=== PATIENT | male | born 1960 | race Caucasian/White ===

== ENCOUNTER 2017-08-31 02:26 | Inpatient (IN) | payer MEDICARE, MEDICAID ==
[~2017-08-31] VITALS: Ht 180.3 cm; Wt 79.3 kg
[~2017-08-31 02:26] MED LIST: CIPR500T87 PO
[2017-08-31 03:40] LABS: BASOPHILS # (AUTO) 0.04 x10^3/uL (0-0.1); BASOPHILS % (AUTO) 0 % (0-1); EOSINOPHILS # (AUTO) 0.14 x10^3/uL (0-0.4); EOSINOPHILS % (AUTO) 1 % (1-7); LYMPHOCYTES # (AUTO) 1.99 x10^3/uL (1-3.4); LYMPHOCYTES % (AUTO) 15 % (22-44); MD NO; MEAN CORPUSCULAR HEMOGLOBIN 31.7 pg (27.5-34.5); MEAN CORPUSCULAR HGB CONC 34.1 g/dL (33.2-36.2); MEAN CORPUSCULAR VOLUME 93.1 fL (81-97); MEAN PLATELET VOLUME 7.6 fL (7.4-10.4); MONOCYTES # (AUTO) 0.66 x10^3/uL (0.2-0.8); MONOCYTES % (AUTO) 5 % (2-9); NEUTROPHILS % (AUTO) 79 % (42-75); PLATELET COUNT 491 x10^3/uL (130-400); RED CELL DISTRIBUTION WIDTH 12.7 % (9.4-14.8)
[2017-08-31 03:46] LABS: ALBUMIN 3.1 g/dL (3.4-5.0); ANION GAP 9 mmol/L (5-15); CALCIUM 8.8 mg/dL (8.5-10.1); CHLORIDE 104 mmol/L (98-107); CREATININE 0.99 mg/dL (0.7-1.3)
[2017-08-31 04:55] LABS: HCT (SEDRATE) 42.8 % (39.2-51.8)
[2017-08-31] MEDS ORDERED: MORPHINE SULFATE 4 MG/ML, 1ML IVPush PRN ×2 (06:00→07:00)
[2017-08-31] MEDS ORDERED: ONDANSETRON 2MG/ML, 2ML IVPush ONE (06:00)
[2017-08-31] MEDS ORDERED: ONDANSETRON 2MG/ML, 2ML ONE (06:19)
[2017-08-31] MEDS ORDERED: MORPHINE SULFATE 4 MG/ML, 1ML ONE (06:19)
[2017-08-31] MEDS ORDERED: CLINDAMYCIN PMX 600MG/50ML 50 ML ONE (06:47)
[2017-08-31] MEDS ORDERED: ONDANSETRON 2MG/ML, 2ML IVPush PRN ×2 (07:00→08:00)
[2017-08-31] MEDS ORDERED: CLINDAMYCIN PMX 600MG/50ML 50 ML IV ONE (07:00)
[2017-08-31] MEDS ORDERED: LABETALOL 5MG/ML, 20ML IVPush PRN (08:00)
[2017-08-31] MEDS ORDERED: VANCOMYCIN PER PHARMACY MC PRN (08:00)
[2017-08-31] MEDS ORDERED: BISACODYL 10 MG SUPP PR PRN (08:00)
[2017-08-31] MEDS ORDERED: VANCOMYCIN PMX 1GM/200ML 200 ML IV ONE (08:00)
[2017-08-31] MEDS ORDERED: POLYETHYLENE GLYCOL 17 GM PACKET PO PRN (08:00)
[2017-08-31] MEDS ORDERED: hydrALAzine 20 MG/ML, 1ML IVPush PRN (08:00)
[2017-08-31] MEDS ORDERED: ONDANSETRON ODT 4 MG PO PRN (08:00)
[2017-08-31 08:01] VITALS: BP 136/97
[2017-08-31] MEDS: OXYcodone IR 5MG TABLET PO PRN ×3 (08:14→20:31)
[2017-08-31] MEDS: LACTULOSE 10 GM/15 ML UDC PO SCH ×2 (08:16→20:31)
[2017-08-31] MEDS: SODIUM CHLORIDE 0.9% 1,000 ML IV SCH ×2 (08:18→19:26)
[2017-08-31 08:29] LABS: THYROID STIMULATING HORMONE 1.19 mIU/L (0.358-3.740)
[2017-08-31] MEDS ORDERED: PHARMACOKINETIC MONITORING MC PRN (08:30)
[2017-08-31] MEDS: PIPERACILLIN/TAZO/PMX 3.375GM 50 ML IV SCH ×2 (09:11→16:38)
[2017-08-31] MEDS: VANCOMYCIN 1,700 MG in SODIUM CHLORIDE 0.9% 250 ML IV SCH (10:40)
[2017-08-31] MEDS: NICOTINE 14MG/24 HR PATCH.TD24 TD SCH (11:37)
[2017-08-31 14:44] VITALS: BP 116/81
[2017-08-31] MEDS ORDERED: HEPARIN 5,000 UNITS/ML, 1ML ONE (17:13)
[2017-08-31] MEDS: HEPARIN 5,000 UNITS/ML, 1ML SQ SCH (17:17)
[2017-08-31 19:34] VITALS: BP 134/74
[2017-08-31] MEDS: MORPHINE SULFATE 4 MG/ML, 1ML IVPush PRN (20:49)
[2017-09-01 00:50] VITALS: BP 133/83
[2017-09-01] MEDS: PIPERACILLIN/TAZO/PMX 3.375GM 50 ML IV SCH ×3 (00:58→17:08)
[2017-09-01] MEDS: OXYcodone IR 5MG TABLET PO PRN ×2 (00:58→06:30)
[2017-09-01] MEDS: HEPARIN 5,000 UNITS/ML, 1ML SQ SCH ×3 (00:58→17:08)
[2017-09-01] MEDS: MORPHINE SULFATE 4 MG/ML, 1ML IVPush PRN ×3 (01:42→21:30)
[2017-09-01] MEDS: SODIUM CHLORIDE 0.9% 1,000 ML IV SCH ×2 (02:16→03:49)
[2017-09-01] MEDS: VANCOMYCIN 1,700 MG in SODIUM CHLORIDE 0.9% 250 ML IV SCH ×2 (03:45→22:11)
[2017-09-01 05:39] LABS: BASOPHILS # (AUTO) 0.05 x10^3/uL (0-0.1); BASOPHILS % (AUTO) 1 % (0-1); EOSINOPHILS # (AUTO) 0.37 x10^3/uL (0-0.4); EOSINOPHILS % (AUTO) 4 % (1-7); LYMPHOCYTES # (AUTO) 2.51 x10^3/uL (1-3.4); LYMPHOCYTES % (AUTO) 25 % (22-44); MD NO; MEAN CORPUSCULAR HEMOGLOBIN 31.6 pg (27.5-34.5); MEAN CORPUSCULAR HGB CONC 33.6 g/dL (33.2-36.2); MEAN PLATELET VOLUME 7.1 fL (7.4-10.4); MONOCYTES # (AUTO) 0.91 x10^3/uL (0.2-0.8); MONOCYTES % (AUTO) 9 % (2-9); NEUTROPHILS % (AUTO) 63 % (42-75); PLATELET COUNT 460 x10^3/uL (130-400); RED BLOOD COUNT 4.25 x10^6/uL (4.38-5.82); RED CELL DISTRIBUTION WIDTH 12.7 % (9.4-14.8)
[2017-09-01 05:53] LABS: CHLORIDE 105 mmol/L (98-107)
[2017-09-01 06:18] LABS: ALANINE AMINOTRANSFERASE 24 U/L (12-78); ALBUMIN 2.5 g/dL (3.4-5.0); ALKALINE PHOSPHATASE 94 U/L (45-117); ANION GAP 8 mmol/L (5-15); BILIRUBIN,TOTAL 0.3 mg/dL (0.2-1.0); CHOL/HDL RATIO 4.2; CHOLESTEROL, TOTAL 135 mg/dL (140-239); CREATININE 0.98 mg/dL (0.7-1.3); HDL CHOL % 24 % (26-37); HDL CHOLESTEROL (DIRECT) 32 mg/dL (40-60); LDL CHOLESTEROL,CALCULATED 81 mg/dL (54-169); LDL/HDL RATIO 2.5 (0.5-3.0); TOTAL PROTEIN 6.6 g/dL (6.4-8.2); TRIGLYCERIDES 112 mg/dL (50-200); VLDL CHOLESTEROL 22 mg/dL (0-25)
[2017-09-01] MEDS: LACTULOSE 10 GM/15 ML UDC PO SCH ×2 (08:41→20:00)
[2017-09-01 08:44] VITALS: BP 136/84
[2017-09-01] MEDS: NICOTINE 14MG/24 HR PATCH.TD24 TD SCH (10:25)
[2017-09-01] MEDS: ACETAMINOPHEN 325 MG TABLET PO PRN (14:35)
[2017-09-01 14:58] VITALS: BP 138/89
[2017-09-01 19:31] VITALS: BP 141/78
[2017-09-01] MEDS: TEMAZEPAM 15 MG CAPSULE PO PRN (19:55)
[2017-09-02] MEDS: ACETAMINOPHEN 325 MG TABLET PO PRN ×3 (00:12→13:44)
[2017-09-02 00:15] VITALS: BP 155/96
[2017-09-02] MEDS: MORPHINE SULFATE 4 MG/ML, 1ML IVPush PRN (00:28)
[2017-09-02] MEDS: PIPERACILLIN/TAZO/PMX 3.375GM 50 ML IV SCH ×3 (01:28→18:01)
[2017-09-02] MEDS: HEPARIN 5,000 UNITS/ML, 1ML SQ SCH ×3 (01:32→18:02)
[2017-09-02 07:22] VITALS: BP 138/95
[2017-09-02] MEDS: LACTULOSE 10 GM/15 ML UDC PO SCH ×2 (08:31→20:00)
[2017-09-02] MEDS: NICOTINE 14MG/24 HR PATCH.TD24 TD SCH (10:36)
[2017-09-02 14:50] VITALS: BP 141/95
[2017-09-02] MEDS: VANCOMYCIN 1,700 MG in SODIUM CHLORIDE 0.9% 250 ML IV SCH (16:12)
[2017-09-02 19:24] VITALS: BP 151/99
[2017-09-02] MEDS: OXYcodone IR 5MG TABLET PO PRN (20:01)
[2017-09-02] MEDS: TEMAZEPAM 15 MG CAPSULE PO PRN (20:06)
[2017-09-03 00:42] VITALS: BP 153/95
[2017-09-03] MEDS: PIPERACILLIN/TAZO/PMX 3.375GM 50 ML IV SCH ×2 (00:55→09:18)
[2017-09-03] MEDS: HEPARIN 5,000 UNITS/ML, 1ML SQ SCH ×2 (01:01→10:01)
[2017-09-03] MEDS: OXYcodone IR 5MG TABLET PO PRN (02:12)
[2017-09-03] MEDS: ACETAMINOPHEN 325 MG TABLET PO PRN (06:48)
[2017-09-03 08:31] VITALS: BP 162/76
[2017-09-03] MEDS: LACTULOSE 10 GM/15 ML UDC PO SCH (09:00)
[2017-09-03] MEDS: VANCOMYCIN 1,700 MG in SODIUM CHLORIDE 0.9% 250 ML IV SCH (10:01)
[2017-09-03] MEDS: NICOTINE 14MG/24 HR PATCH.TD24 TD SCH (10:07)
[2017-09-03] MEDS ORDERED: AMOX1TAB64 PO (11:47)
[2017-09-03] MEDS ORDERED: BUTALB/APAP/CAFFEINE 50MG/325MG/40MG PO PRN (12:00)
[2017-09-03 12:13] VITALS: BP 152/78
== END 2017-09-03 13:00 | disposition home or self-care (01) | DRG 871 ==
LOC: ED 05:17 → EDIP 06:49 → 4NOR 07:43 → DCLOUNGE 09-03 12:47
PROVIDERS: ADMIT Internal Medicine; ATTEND Hospitalist
DX: A41.9 Sepsis, unspecified organism (principal); E43 Unspecified severe protein-calorie malnutrition; L03.113 Cellulitis of right upper limb; M70.21 Olecranon bursitis, right elbow; F17.200 Nicotine dependence, unspecified, uncomplicated; I10 Essential (primary) hypertension; Z91.14 Patient's other noncompliance with medication regimen
CPT/HCPCS: 0399T; 36415; 80048; 80053; 80061; 80202; 82040; 83735; 84443; 85025; 85651; 86140; 86141; 87040; 93306; J1644; J2405; J2543; J3370; J7030; J7050

== ENCOUNTER 2019-05-01 15:50 | Emergency (ER) | payer MEDICAID, MEDICARE, OTHER ==
[~2019-05-01] VITALS: Ht 180.3 cm; Wt 80.0 kg
[~2019-05-01 15:50] MED LIST changes: +AMOX1TAB64 PO
[2019-05-01 16:02] VITALS: BP 162/97
[2019-05-01] MEDS ORDERED: OXYcodone/APAP 5/325MG TABLET ONE (16:27)
[2019-05-01] MEDS ORDERED: ONDANSETRON ODT 4 MG ONE (16:27)
--- NOTE | 2019-05-01 16:30 | NUR ---
MEDS ADMIN PER MAY.
[2019-05-01] MEDS ORDERED: ONDANSETRON ODT 8 MG PO ONE (17:00)
[2019-05-01] MEDS ORDERED: OXYcodone/APAP 5/325MG TABLET PO ONE (17:00)
== END 2019-05-01 16:35 | disposition home or self-care (01) ==
LOC: ED 16:30
DX: K02.9 Dental caries, unspecified (principal); I10 Essential (primary) hypertension; Z88.1 Allergy status to other antibiotic agents
CPT/HCPCS: 99283; Q0162